=== PATIENT | female | born 1965 | race African-American/Black ===

== ENCOUNTER 2017-04-04 13:56 | Emergency (ER) | payer OTHER ==
[~2017-04-04] VITALS: Ht 175.3 cm; Wt 74.8 kg
[~2017-04-04 13:56] MED LIST: AUGMENTIN 875-1 EAC1 ORAL; CLINDAMYCIN HC150 MG ORAL; IBUPROFEN600 MG ORAL; KEFLEX500 MG ORAL; NORCO 5-325 TA1 EACH ORAL; TYLENOL EXTRA500 MG ORAL
[2017-04-04 14:21] VITALS: BP 118/75
--- NOTE | 2017-04-04 14:23 | Emergency Room Report ---
History of Present Illness General Chief Complaint: Female Urogenital Problems Source: Patient Present Illness HPI 51-year-old female presents to the emergency department complaining of 6/10 in severity dysuria, frequency, lower abdominal burning sensation with itching and labial swelling x3 days. Mild increase in odor. Patient denies hematuria denies vaginal discharge, genital skin lesions, swollen tender lymph nodes, joint pains, fevers or chills. Patient reports onset of symptoms was morning after having intercourse. Patient denies low back pain reports fatigue, nausea denies vomiting, constipation, diarrhea. Denies CP, Palpitations, LOC, AMS, dizziness, Changes in Vision, Sensation, paresthesias, or a sudden severe headache. Allergies: Coded Allergies: No Known Allergies (Unverified , 04/04/17) Patient History Past Medical History: see triage record Past Surgical History: none Pertinent Family History: none Last Menstrual Period: 02/24/2017 Immunizations: UTD Reviewed Nursing Documentation: PMH: Agreed, PSxH: Agreed Nursing Documentation-PMH Past Medical History: No Stated History Review of Systems All Other Systems: negative except mentioned in HPI Physical Exam Vital Signs Date Time Temp Pulse Resp B/P (MAP) Pulse Ox O2 Delivery O2 Flow Rate FiO2 04/04/17 14:01 97.3 80 14 118/75 99 Room Air Sp02 EP Interpretation: reviewed, normal General Appearance: no apparent distress, alert, GCS 15, non-toxic Head: normocephalic, atraumatic Eyes: bilateral eye normal inspection, bilateral eye PERRL ENT: hearing grossly normal, normal voice Neck: full range of motion Respiratory: lungs clear, normal breath sounds, speaking full sentences Cardiovascular #1: regular rate, rhythm Gastrointestinal: normal bowel sounds, non tender, soft, no guarding, no rebound Rectal: deferred Genitourinary: normal inspection, no CVA tenderness Musculoskeletal: back normal, gait/station normal, normal range of motion, non- tender Neurologic: alert, oriented x3, responsive, motor strength/tone normal, sensory intact, speech normal Psychiatric: judgement/insight normal, memory normal, mood/affect normal Skin: normal color, no rash, warm/dry, well hydrated Lymphatic: no adenopathy Medical Decision Making PA Attestation Dr. Coleman is my supervising Physician whom patient management has been discussed with. Diagnostic Impression: Primary Impression: Bacterial vaginosis ER Course 51-year-old female presents to the emergency department complaining of 6/10 in severity dysuria, frequency, lower abdominal burning sensation with itching and labial swelling x3 days. Mild increase in odor. Patient denies hematuria denies vaginal discharge, genital skin lesions, swollen tender lymph nodes, joint pains, fevers or chills. Patient reports onset of symptoms was morning after having intercourse. Patient denies low back pain reports fatigue, nausea denies vomiting, constipation, diarrhea. Denies CP, Palpitations, LOC, AMS, dizziness, Changes in Vision, Sensation, paresthesias, or a sudden severe headache. Ddx considered but are not limited to UTi , Pyelo, STI, Stone, Cystitis, BV, vaginitis Vital signs: are WNL, pt. is afebrile H&PE are most consistent with vaginitis, no evidence of pyelo, will r/o UTI with UA .other [place] will treat clinically ORDERS: - UA labs are attached : few bacteria, few squamous, no inflammatory cells consistent with contamination. ED INTERVENTIONS: -Pyridium PO DISCHARGE: At this time pt. is stable for d/c to home. Will provide printed patient care instructions, and any necessary prescriptions. Care plan and follow up instructions have been discussed with the patient prior to discharge. Labs Test 04/04/17 14:11 Urine Color Yellow Urine Appearance Clear Urine pH 6.5 (4.5-8.0) Urine Specific [place] 1.010 (1.005-1.035) Urine Protein Negative (NEGATIVE) Urine Glucose (UA) Negative (NEGATIVE) Urine Ketones 1+ (NEGATIVE) Urine Occult Blood Negative (NEGATIVE) Urine Nitrite Negative (NEGATIVE) Urine Bilirubin Negative (NEGATIVE) Urine Urobilinogen Normal MG/DL (0.0-1.0) Urine Leukocyte Esterase 1+ (NEGATIVE) Urine RBC 0-2 /HPF (0 - 2) Urine WBC 2-4 /HPF (0 - 2) Urine Squamous Epithelial Cells Few /LPF (NONE/OCC) Urine Bacteria Few /HPF (NONE) Last Vital Signs Date Time Temp Pulse Resp B/P (MAP) Pulse Ox O2 Delivery O2 Flow Rate FiO2 04/04/17 14:01 97.3 80 14 118/75 99 Room Air Disposition: HOME, SELF-CARE Condition: Stable Scripts Phenazopyridine Hcl* (PYRIDIUM*) 200 Mg Tablet 200 MG ORAL THREE TIMES A DAY for 3 Days, #9 TAB 0 Refills Prov: Delmy Jin 04/04/17 Fluconazole (FLUCONAZOLE) 100 Mg Tablet 100 MG ORAL DAILY, #3 TAB 0 Refills Prov: Delmy Jin. 04/04/17 Metronidazole* (FLAGYL*) 500 Mg Tablet 500 MG ORAL BID for 7 Days, #14 TAB 0 Refills Prov: Delmy Jin 04/04/17 Patient Instructions: Bacterial Vaginosis Additional Instructions: Take medications as directed. Follow up with a Primary Care Provider in 3-5 days, even if your symptoms have resolved. --Please review list of primary care clinics, if you do not already have a primary care provider Return sooner to ED if new symptoms occur, or current symptoms become worse. Pyridium will cause your urine to change color (Red/[place]), this is a normal side effect of the medication. - Please note that this Emergency Department Report was dictated using [employer] tax advisor technology software, occasionally this can lead to erroneous entry secondary to interpretation by the dictation equipment. Delmy Jin Apr 04, 2017 14:23
[2017-04-04 14:30] LABS: APPEARANCE,URINE CLEAR; KETONES,URINE 1+ (NEGATIVE); LEUKOCYTE ESTERASE ,URINE 1+ (NEGATIVE); NITRITE,URINE NEGATIVE (NEGATIVE); PH,URINE 6.5 (4.5-8.0); PROTEIN,URINE NEGATIVE (NEGATIVE); UROBILINOGEN,URINE NORMAL MG/DL (0.0-1.0)
[2017-04-04] MEDS ORDERED: Phenazopyridine 200mg tab ORAL ONE (14:30)
[2017-04-04 14:40] LABS: BACTERIA,URINE FEW /HPF; RBC,URINE 0-2 /HPF (0 - 2); SQUAMOUS EPITHELIAL CELL,UR FEW /LPF (NONE/OCC)
[2017-04-04] MEDS ORDERED: FLUCONAZOLE100 MG ORAL (15:04)
[2017-04-04] MEDS ORDERED: PHENAZOPYRIDIN200 MG ORAL (15:04)
[2017-04-04] MEDS ORDERED: METRONIDAZOLE500 MG ORAL (15:04)
[2017-04-04 15:34] VITALS: BP 118/75
== END 2017-04-04 15:36 | disposition home or self-care (01) ==
LOC: EDBD → EMR 14:35
DX: N76.0 Acute vaginitis (principal); B96.89 Other specified bacterial agents as the cause of diseases classified elsewhere
CPT/HCPCS: 81003; 99283

== ENCOUNTER 2017-04-14 14:59 | Emergency (ER) | payer OTHER ==
[~2017-04-14] VITALS: Ht 175.3 cm; Wt 65.8 kg
[~2017-04-14 14:59] MED LIST changes: +FLUCONAZOLE100 MG ORAL; +METRONIDAZOLE500 MG ORAL; +PHENAZOPYRIDIN200 MG ORAL
[2017-04-14 15:15] VITALS: BP 128/78
--- NOTE | 2017-04-14 15:38 | Emergency Room Report ---
History of Present Illness General Chief Complaint: Pelvic Pain Source: Patient Present Illness HPI 52 YO female presents to the ED c/O bladder distention, dysuria, and vaginal d/ c x 1 week. pt. was previously rx'd Flagyl but she states she is unable to tolerate flagyl and it made her sick. pt. finished course of Diflucan and has been intermittently taking Pyridium. Pt. reports fevers that come and go, denies chills, joint pain, nausea or vomiting. pt. states she is beginning to question the possibility of STD when previously she did not believe that could be the cause. denies abdominal tenderness, denies vaginal lesions, denies constipation or diarrhea. Denies CP, Palpitations, LOC, AMS, dizziness, Changes in Vision, Sensation, paresthesias, or a sudden severe headache. Allergies: Coded Allergies: No Known Allergies (Unverified , 04/04/17) Patient History Past Medical History: see triage record Past Surgical History: none Pertinent Family History: none Now: No Immunizations: UTD Reviewed Nursing Documentation: PMH: Agreed, PSxH: Agreed Nursing Documentation-PMH Past Medical History: No Stated History Review of Systems All Other Systems: negative except mentioned in HPI Physical Exam Vital Signs Date Time Temp Pulse Resp B/P (MAP) Pulse Ox O2 Delivery O2 Flow Rate FiO2 04/14/17 15:04 97.5 87 17 128/78 97 Room Air Sp02 EP Interpretation: reviewed, normal General Appearance: no apparent distress, alert, GCS 15, non-toxic Head: normocephalic, atraumatic Eyes: bilateral eye normal inspection, bilateral eye PERRL ENT: hearing grossly normal, normal voice Neck: full range of motion Respiratory: lungs clear, normal breath sounds, speaking full sentences Cardiovascular #1: regular rate, rhythm Gastrointestinal: normal bowel sounds, non tender, soft, no guarding, no rebound Rectal: deferred Genitourinary: normal inspection, no CVA tenderness, other - clear scant vaginal d/c noted, no MCT, no LAD Musculoskeletal: back normal, gait/station normal, normal range of motion, non- tender Neurologic: alert, oriented x3, responsive, motor strength/tone normal, sensory intact, normal gait, speech normal Skin: normal color, no rash, warm/dry, well hydrated Lymphatic: no adenopathy Medical Decision Making PA Attestation Dr. Kaplan is my supervising Physician whom patient management has been discussed with. Diagnostic Impression: Primary Impression: Urinary tract infection Qualified Codes: N30.00 - Acute cystitis without hematuria ER Course 52 YO female presents to the ED c/O bladder distention, dysuria, and vaginal d/ c x 1 week. pt. was previously rx'd Flagyl but she states she is unable to tolerate flagyl and it made her sick. pt. finished course of Diflucan and has been intermittently taking Pyridium. Pt. reports fevers that come and go, denies chills, joint pain, nausea or vomiting. pt. states she is beginning to question the possibility of STD when previously she did not believe that could be the cause. denies abdominal tenderness, denies vaginal lesions, denies constipation or diarrhea. Denies CP, Palpitations, LOC, AMS, dizziness, Changes in Vision, Sensation, paresthesias, or a sudden severe headache. Ddx considered but are not limited to UTi , Pyelo, STI, Stone, Cystitis, vaginitis. Vital signs: are WNL, pt. is afebrile H& PE are most consistent with: non-compliance with previous medication regimen and continued symptoms. ORDERS: - UA labs are attached - Nitrite positive -Urine HCG:Negative - Vaginal Wet mount: negative -Urine G & C: Pending ED INTERVENTIONS: -Rocephin IM DISCHARGE: At this time pt. is stable for d/c to home. Will provide printed patient care instructions, and any necessary prescriptions. Care plan and follow up instructions have been discussed with the patient prior to discharge. Labs Test 04/14/17 15:20 Urine Color Brown Urine Appearance Cloudy Urine pH 8 (4.5-8.0) Urine Specific [place] 1.010 (1.005-1.035) Urine Protein Negative (NEGATIVE) Urine Glucose (UA) Negative (NEGATIVE) Urine Ketones 1+ (NEGATIVE) Urine Occult Blood Negative (NEGATIVE) Urine Nitrite Positive (NEGATIVE) Urine Bilirubin Negative (NEGATIVE) Urine Urobilinogen 1 MG/DL (0.0-1.0) Urine Leukocyte Esterase 1+ (NEGATIVE) Urine RBC 0 /HPF (0 - 2) Urine WBC 0 /HPF (0 - 2) Urine Squamous Epithelial Cells Few /LPF (NONE/OCC) Urine Amorphous Sediment Many /LPF (NONE) Urine Bacteria Occasional /HPF (NONE) Urine HCG, Qualitative Negative Last Vital Signs Date Time Temp Pulse Resp B/P (MAP) Pulse Ox O2 Delivery O2 Flow Rate FiO2 04/14/17 15:04 97.5 87 17 128/78 97 Room Air Disposition: HOME, SELF-CARE Condition: Stable Scripts Cephalexin* (KEFLEX*) 500 Mg Capsule 500 MG ORAL EVERY 12 HOURS for 7 Days, #14 CAP 0 Refills Prov: Delmy Jin 04/14/17 Doxycycline Hyclate* (VIBRAMYCIN*) 100 Mg Capsule 100 MG ORAL EVERY 12 HOURS for 7 Days, #14 CAP 0 Refills Prov: Delmy Jin.Fran. 04/14/17 Patient Instructions: Urinary Tract Infection, [id number] Additional Instructions: Take medications as directed. Follow up with a Primary Care Provider for Urology referral in 3-5 days --Please review list of primary care clinics, if you do not already have a primary care provider Return sooner to ED if new symptoms occur, or current symptoms become worse. - Please note that this Emergency Department Report was dictated using [employer] or presser technology software, occasionally this can lead to erroneous entry secondary to interpretation by the dictation equipment. Delmy Jin Apr 14, 2017 15:38
[2017-04-14 15:56] LABS: APPEARANCE,URINE CLOUDY; KETONES,URINE 1+ (NEGATIVE); LEUKOCYTE ESTERASE ,URINE 1+ (NEGATIVE); NITRITE,URINE POSITIVE (NEGATIVE); PH,URINE 8 (4.5-8.0); PROTEIN,URINE NEGATIVE (NEGATIVE); UROBILINOGEN,URINE 1 MG/DL (0.0-1.0)
[2017-04-14 16:02] LABS: AMORPHOUS SEDIMENT,UR MANY /LPF; BACTERIA,URINE OCCASIONAL /HPF; RBC,URINE 0 /HPF (0 - 2); SQUAMOUS EPITHELIAL CELL,UR FEW /LPF (NONE/OCC); WBC,URINE 0 /HPF (0 - 2)
[2017-04-14] MEDS ORDERED: VIBRAMYCIN100 MG ORAL (16:56)
[2017-04-14] MEDS ORDERED: NITROFURANTOIN100 M2 ORAL (16:56)
[2017-04-14 17:01] VITALS: BP 128/75
[2017-04-14 17:04] VITALS: BP 128/75
[2017-04-14] MEDS ORDERED: CEPHALEXIN500 MG ORAL (17:04)
== END 2017-04-14 17:05 | disposition home or self-care (01) ==
LOC: EDBD 14:59 → EMR 15:40
DX: N30.00 Acute cystitis without hematuria (principal)
CPT/HCPCS: 81003; 81025; 87210; 87491; 87590; 96372; 99283; J0696

== ENCOUNTER 2017-11-12 18:07 | Emergency (ER) | payer OTHER ==
[~2017-11-12] VITALS: Ht 175.3 cm; Wt 68.0 kg
[~2017-11-12 18:07] MED LIST changes: +CEPHALEXIN500 MG ORAL; +NITROFURANTOIN100 M2 ORAL; +VIBRAMYCIN100 MG ORAL
[2017-11-12] MEDS ORDERED: NKM (18:29)
--- NOTE | 2017-11-12 18:38 | Emergency Room Report ---
History of Present Illness General Chief Complaint: Female Urogenital Problems Source: Patient Present Illness HPI 53-year-old female patient presents ER complaining of dysuria for the past 2 days. Patient denies hematuria. Patient also complains of vaginal discharge, reports clear/green color. Patient reports her boyfriend recently tested positive for chlamydia and would like to be treated as well. Patient denies fever, vomiting, abdominal pain. Patient denies foul-smelling odor. Patient denies vaginal rash. Patient denies other symptoms at this time. reports LMP a few days ago, normal for her. denies . Allergies: Coded Allergies: No Known Allergies (Unverified , 04/04/17) Patient History Past Medical History: see triage record Last Menstrual Period: 11/09/17 Reviewed Nursing Documentation: PMH: Agreed; PSxH: Agreed Nursing Documentation-PMH Past Medical History: No Stated History Review of Systems All Other Systems: negative except mentioned in HPI Physical Exam Vital Signs Date Time Temp Pulse Resp B/P (MAP) Pulse Ox O2 Delivery O2 Flow Rate FiO2 11/12/17 18:26 98.0 86 17 122/76 98 Room Air 98.1 Sp02 EP Interpretation: reviewed, normal General Appearance: well appearing, no apparent distress, alert, GCS 15, non- toxic Head: normocephalic, atraumatic Eyes: bilateral eye normal inspection, bilateral eye PERRL ENT: hearing grossly normal, normal pharynx, no angioedema, normal voice, uvula midline, moist mucus membranes Neck: full range of motion Respiratory: lungs clear, normal breath sounds, no rhonchi, no respiratory distress, no accessory muscle use, no wheezing, speaking full sentences Cardiovascular #1: regular rate, rhythm, no edema Gastrointestinal: soft, no mass, non-distended, no guarding, no rebound, tenderness - suprapubic Genitourinary: no CVA tenderness Neurologic: alert, oriented x3, responsive, motor strength/tone normal, sensory intact Psychiatric: mood/affect normal Skin: no rash Medical Decision Making PA Attestation Dr. Kaplan is my supervising Physician whom patient management has been discussed with. Diagnostic Impression: Primary Impression: Concern about sexually transmitted disease in female without diagnosis ER Course Pt presents to ED c/o urinary symptoms. DDX considered but are not limited to cystitis, pyelonephritis, STI, vaginitis. No white discharge, no foul smelling odor, low suspicion for bacterial vaginosis or yeast infection, follow with PCP to discuss further treatment referral. VITAL SIGNS are WNL, patient is afebrile. Ordered UA. ER COURSE UA results show 1+ leukocyte esterase, no nitrites, 0-2 WBCs, no bacteria, UTI unlikely, does not require treatment with abx. discussed UA results with patient, does not require antibiotic treatment at home for UTI, symptoms likely related to possible STI infection. Will treat patient for for STI, patient instructed to follow with PCP and or at STI clinic for further testing and treatment as needed. treated patient with azithromycin and Rocephin in ER. Patient advised all sexual partners need treatment and testing too. Wear condoms during sex. Patient is resting comfortably in chair, nontoxic appearing, in no acute distress. Patient states they feel better and is ready to go home. DISCHARGE -Rx provided for Pyridium for pain, side effect may cause her urine to turn orange. Patient is stable for discharge. Patient resting comfortably, in no acute distress, nontoxic appearing, talking without difficulty. Will provide with patient care instructions and any necessary prescriptions. Patient understands and agrees to treatment plan. Patient encouraged to drink plenty of fluids. Patient to take medication as instructed. Care plan and follow-up instructions provided. Patient questions asked and answered. Reports understanding and agreement to treatment plan. Patient instructed to follow-up with primary care provider in 3 - 5 days. ER precautions given. Patient instructed to return to ER immediately for any new or worsening of symptoms. Including but not limited to fever, abdominal pain , intractable vomiting. - Please note that this Emergency Department Report was dictated using [employer] pile driver operator technology software, occasionally this can lead to erroneous entry secondary to interpretation by the dictation equipment. Labs Test 11/12/17 18:30 Urine Color Yellow Urine Appearance Clear Urine pH 7 (4.5-8.0) Urine Specific [place] 1.015 (1.005-1.035) Urine Protein Negative (NEGATIVE) Urine Glucose (UA) Negative (NEGATIVE) Urine Ketones Negative (NEGATIVE) Urine Occult Blood Negative (NEGATIVE) Urine Nitrite Negative (NEGATIVE) Urine Bilirubin Negative (NEGATIVE) Urine Urobilinogen Normal MG/DL (0.0-1.0) Urine Leukocyte Esterase 1+ (NEGATIVE) Urine RBC 0-2 /HPF (0 - 2) Urine WBC 0-2 /HPF (0 - 2) Urine Squamous Epithelial Cells Occasional /LPF Urine Bacteria None /HPF (NONE) Last Vital Signs Date Time Temp Pulse Resp B/P (MAP) Pulse Ox O2 Delivery O2 Flow Rate FiO2 11/12/17 18:26 98.0 86 17 122/76 98 Room Air 98.1 Disposition: HOME, SELF-CARE Condition: Stable Scripts Phenazopyridine Hcl* (PYRIDIUM*) 100 Mg Tablet 100 MG ORAL THREE TIMES A DAY for 3 Days, #9 TAB Prov: Kade Ott 11/12/17 Patient Instructions: Sexually Transmitted Disease, [id number], Urinary Tract Infection, [id number] Additional Instructions: Followup with primary care provider and followup with and./or OBGYN. Drink plenty of fluids. Take medications as directed. Pyridium has SE of turning urine orange. Patient questions asked and answered. ER precautions given, patient instructed to return to ER immediately for any new or worsening of symptoms. Kade Ott November 12, 2017 18:38
[2017-11-12] MEDS ORDERED: Acetaminophen 500mg (ES) tab ORAL ONE (18:45)
[2017-11-12 18:46] LABS: APPEARANCE,URINE CLEAR; BILIRUBIN, URINE NEGATIVE (NEGATIVE); GLUCOSE, URINE (UA) NEGATIVE (NEGATIVE); KETONES,URINE NEGATIVE (NEGATIVE); LEUKOCYTE ESTERASE ,URINE 1+ (NEGATIVE); NITRITE,URINE NEGATIVE (NEGATIVE); PH,URINE 7 (4.5-8.0); PROTEIN,URINE NEGATIVE (NEGATIVE); UROBILINOGEN,URINE NORMAL MG/DL (0.0-1.0)
[2017-11-12 18:47] LABS: COLOR,URINE YELLOW
[2017-11-12] MEDS ORDERED: Azithromycin 250mg tab ORAL ONE (19:00)
[2017-11-12] MEDS ORDERED: PHENAZOPYRIDIN100 MG ORAL (19:00)
[2017-11-12] MEDS ORDERED: Lidocaine 1% MPF 10mg/ml 5ml INJ ONE (19:00)
[2017-11-12 19:03] VITALS: BP 122/76
[2017-11-12 19:05] VITALS: BP 122/76
== END 2017-11-12 19:07 | disposition home or self-care (01) ==
LOC: EMR 18:58
DX: R30.0 Dysuria (principal); N89.8 Other specified noninflammatory disorders of vagina
CPT/HCPCS: 81003; 96372; 99283; J0696; Q0144

== ENCOUNTER 2018-06-18 16:18 | Emergency (ER) | payer OTHER ==
[~2018-06-18] VITALS: Ht 175.3 cm; Wt 65.8 kg
[~2018-06-18 16:18] MED LIST changes: +NKM; +PHENAZOPYRIDIN100 MG ORAL
[2018-06-18 16:33] VITALS: BP 117/80
[2018-06-18] MEDS ORDERED: ROBITUSSIN NIG237 ML PO (17:09)
[2018-06-18] MEDS ORDERED: CEPHALEXIN500 MG ORAL (17:09)
[2018-06-18 17:34] VITALS: BP 121/83
--- NOTE | 2018-06-18 19:03 | Emergency Room Report ---
History of Present Illness General Chief Complaint: Flu Like Symptoms Source: Patient Present Illness HPI Patient presents with complaints of sore throat cough congestion Ongoing for the past 4 days denies any chest pain Denies any back or flank pain Denies any vomiting or diarrhea She has become more productive with her cough as well Denies any neck pain or photophobia denies any recent travel Sore throat is 5 out of 10 worse with swallowing Allergies: Coded Allergies: No Known Allergies (Unverified , 04/04/17) Patient History Past Medical History: see triage record Pertinent Family History: none Reviewed Nursing Documentation: PMH: Agreed; PSxH: Agreed Nursing Documentation-PMH Hx COPD: No - PNA Review of Systems All Other Systems: negative except mentioned in HPI Physical Exam Vital Signs Date Time Temp Pulse Resp B/P (MAP) Pulse Ox O2 Delivery O2 Flow Rate FiO2 06/18/18 16:33 97.9 17 117/80 97 Room Air 06/18/18 16:33 81 Sp02 EP Interpretation: reviewed, normal General Appearance: well appearing, no apparent distress Head: normocephalic, atraumatic Eyes: bilateral eye PERRL, bilateral eye EOMI ENT: hearing grossly normal, TMs + canals normal, uvula midline, pharyngeal erythema Neck: full range of motion, supple, no meningismus, no bony tend Respiratory: lungs clear, normal breath sounds, no rhonchi, no respiratory distress, no retraction, no accessory muscle use Cardiovascular #1: normal peripheral pulses, regular rate, rhythm, no edema, no gallop, no JVD, no murmur Gastrointestinal: normal bowel sounds, non tender, soft, no mass, no organomegaly, non-distended, no guarding, no hernia, no pulsatile mass, no rebound Genitourinary: no CVA tenderness Musculoskeletal: normal inspection Neurologic: oriented x3, responsive, modeling teacher III-XII nml as tested, motor strength/ tone normal, sensory intact Psychiatric: mood/affect normal Skin: normal color, no rash, warm/dry, palpation normal Lymphatic: normal inspection, no adenopathy Medical Decision Making Diagnostic Impression: Primary Impression: pharyngitis ER Course Patient's exam is consistent with pharyngitis given the erythema and duration patient is treated with antibiotics Does not appear septic or toxic and will have initial conservative outpatient trial Last Vital Signs Date Time Temp Pulse Resp B/P (MAP) Pulse Ox O2 Delivery O2 Flow Rate FiO2 12/26/18 17:34 98.2 77 20 121/83 100 Room Air Status: improved Disposition: HOME, SELF-CARE Condition: Stable Scripts Dextromethorphan Hb/Doxylamine (ROBITUSSIN NIGHTTIME COUGH DM) 237 Ml Liquid 10 ML PO QHS for 5 Days, ML Prov: Shantell Kaplan DO 06/18/18 Cephalexin* (KEFLEX*) 500 Mg Capsule 500 MG ORAL EVERY 8 HOURS for 7 Days, CAP Prov: Shantell Kaplan DO 06/18/18 Referrals: [facility],REFERRING (PCP) Patient Instructions: Pharyngitis, [id number] Additional Instructions: Patient is provided with the discharge instructions notified to follow up with primary doctor in the next 2-3 days otherwise return to the er with any worsening symptoms. Please note that this report is being documented using [employer] technology. This can lead to erroneous entry secondary to incorrect interpretation by the dictating instrument. Shantell Kaplan DO Jun 18, 2018 19:03
== END 2018-06-18 17:44 | disposition home or self-care (01) ==
LOC: EMR 17:38
DX: J02.9 Acute pharyngitis, unspecified (principal); J44.9 Chronic obstructive pulmonary disease, unspecified
CPT/HCPCS: 99283

== ENCOUNTER 2018-10-08 14:37 | Emergency (ER) | payer OTHER ==
[~2018-10-08] VITALS: Ht 175.3 cm; Wt 65.8 kg
[~2018-10-08 14:37] MED LIST changes: +ROBITUSSIN NIG237 ML PO
--- NOTE | 2018-10-08 15:10 | NUR ---
ED Nurse Note: Pt came into the ER w/ complaints of pelvic pain x3-4 days. Pt is rating the pain a 7/10 in the area. Non radiating. Pt denies trauma. Pt is A + O x4. Ambulatory. Skin warm to touch
[2018-10-08 15:11] VITALS: BP 100/65
[2018-10-08 15:34] LABS: APPEARANCE,URINE CLEAR; BILIRUBIN, URINE NEGATIVE (NEGATIVE); GLUCOSE, URINE (UA) NEGATIVE (NEGATIVE); KETONES,URINE NEGATIVE (NEGATIVE); LEUKOCYTE ESTERASE ,URINE 1+ (NEGATIVE); NITRITE,URINE NEGATIVE (NEGATIVE); PH,URINE 6.5 (4.5-8.0); PROTEIN,URINE NEGATIVE (NEGATIVE); UROBILINOGEN,URINE NORMAL MG/DL (0.0-1.0)
[2018-10-08 15:41] LABS: COLOR,URINE YELLOW
--- NOTE | 2018-10-08 16:14 | Emergency Room Report ---
History of Present Illness General Chief Complaint: Pelvic Pain Source: Patient Present Illness HPI 54-year-old female presents to the emergency department complaining of 6 out of dysuria, urinary frequency and pelvic pain 4 days. Patient reports recent unprotected intercourse she states that she has noted some increased vaginal discharge she denies appreciable odor or color. She reports moderate itching she denies recent antibiotic use. denies fevers, chills, joint pains, swollen tender lymph nodes, abdominal tenderness/pain. Pt requesting STI tx. Allergies: Coded Allergies: No Known Allergies (Unverified , 04/04/17) Patient History Past Medical History: see triage record Past Surgical History: none Pertinent Family History: none Last Menstrual Period: 09/22/18 Now: No Reviewed Nursing Documentation: PMH: Agreed; PSxH: Agreed Nursing Documentation-PMH Past Medical History: No Stated History Hx COPD: No - PNA Review of Systems All Other Systems: negative except mentioned in HPI Physical Exam Vital Signs Date Time Temp Pulse Resp B/P (MAP) Pulse Ox O2 Delivery O2 Flow Rate FiO2 10/08/18 14:44 98.4 73 18 108/66 96 Room Air Sp02 EP Interpretation: reviewed, normal General Appearance: no apparent distress, alert, GCS 15, non-toxic Head: normocephalic, atraumatic Eyes: bilateral eye normal inspection, bilateral eye PERRL ENT: hearing grossly normal, normal voice Neck: full range of motion Respiratory: lungs clear, normal breath sounds, speaking full sentences Cardiovascular #1: regular rate, rhythm Gastrointestinal: normal bowel sounds, non tender, soft Rectal: deferred Genitourinary: normal inspection, no CVA tenderness, adnexa normal, cervix normal, ext genitalia/vag normal, os closed, other - no CMT, white d/c noted in the vaginal vault. Musculoskeletal: back normal, gait/station normal, normal range of motion, non- tender Neurologic: alert, oriented x3, responsive, motor strength/tone normal, sensory intact, speech normal, grossly normal Psychiatric: judgement/insight normal Skin: normal color, no rash, warm/dry, well hydrated Lymphatic: no adenopathy Medical Decision Making PA Attestation Dr. Kaplan is my supervising Physician whom patient management has been discussed with. Diagnostic Impression: Primary Impression: Vaginitis Qualified Codes: N76.0 - Acute vaginitis ER Course 54-year-old female presents to the emergency department complaining of 6 out of dysuria, urinary frequency and pelvic pain 4 days. Patient reports recent unprotected intercourse she states that she has noted some increased vaginal discharge she denies appreciable odor or color. She reports moderate itching she denies recent antibiotic use. denies fevers, chills, joint pains, swollen tender lymph nodes, abdominal tenderness/pain. Pt requesting STI tx. . Ddx considered but are not limited to UTi , Pyelo, STI, Stone, Cystitis, vaginal laceration, vaginitis. Vital signs: are WNL, pt. is afebrile H& PE are most consistent with: Vaginitis ORDERS: - UA labs are attached - [place] : Few clue ED INTERVENTIONS: - Rocephin 250mg IM -1g Azithromycin PO -I do not identify an emergent condition at this time. With current presentation , pt. is stable for close outpatient follow up and conservative treatment. D/ w pt. to return promptly to ED with worsening or new symptoms.- Pt. verbalizes' understanding and agreement with proposed treatment plan.proposed treatment plan. DISCHARGE: At this time pt. is stable for d/c to home. Will provide printed patient care instructions, and any necessary prescriptions. Care plan and follow up instructions have been discussed with the patient prior to discharge. discussed with the patient prior to discharge. Labs Test 10/08/18 15:22 Urine Color Yellow Urine Appearance Clear Urine pH 6.5 (4.5-8.0) Urine Specific [place] 1.020 (1.005-1.035) Urine Protein Negative (NEGATIVE) Urine Glucose (UA) Negative (NEGATIVE) Urine Ketones Negative (NEGATIVE) Urine Blood Negative (NEGATIVE) Urine Nitrite Negative (NEGATIVE) Urine Bilirubin Negative (NEGATIVE) Urine Urobilinogen Normal MG/DL (0.0-1.0) Urine Leukocyte Esterase 1+ (NEGATIVE) Urine RBC 0-2 /HPF (0 - 2) Urine WBC 2-4 /HPF (0 - 2) Urine Squamous Epithelial Cells Few /LPF (NONE/OCC) Urine Amorphous Sediment Few /LPF (NONE) Urine Bacteria Few /HPF (NONE) Last Vital Signs Date Time Temp Pulse Resp B/P (MAP) Pulse Ox O2 Delivery O2 Flow Rate FiO2 10/08/18 15:11 98.3 78 20 100/65 98 Room Air Disposition: HOME, SELF-CARE Condition: Stable Scripts Metronidazole* (FLAGYL*) 500 Mg Tablet 500 MG ORAL BID for 7 Days, #14 TAB Prov: Delmy Jin 10/08/18 Patient Instructions: Bacterial Vaginosis, [id number], Pelvic Pain, Female Additional Instructions: Take medications as directed. Follow up with a [facility] within 3-5 days, even if your symptoms have resolved. Return sooner to ED if new symptoms occur, or current symptoms become worse. - Please note that this Emergency Department Report was dictated using Easy Vinooutsole beveler technology software, occasionally this can lead to erroneous entry secondary to interpretation by the dictation equipment. Delmy Jin Oct 08, 2018 16:14
[2018-10-08] MEDS ORDERED: METRONIDAZOLE500 MG ORAL (16:15)
[2018-10-08] MEDS ORDERED: Lidocaine 1% MPF 10mg/ml 5ml INJ ONE (16:15)
[2018-10-08] MEDS ORDERED: Azithromycin 250mg tab ORAL ONE (16:15)
[2018-10-08 16:31] VITALS: BP 105/66
--- NOTE | 2018-10-08 16:31 | NUR ---
ER DISCHARGE NOTE: Patient is cleared to be discharged per ERMD, pt is aox4, on room air, with stable vital signs. pt was given dc and prescription instructions, pt was able to verbalize understanding, pt id band removed without complications. pt is able to ambulate with steady gait. pt took all belongings.
== END 2018-10-08 16:32 | disposition home or self-care (01) ==
LOC: EMR 15:35
DX: N76.0 Acute vaginitis (principal)
CPT/HCPCS: 81003; 87210; 96372; 96374; 99284; J0696; Q0144

== ENCOUNTER 2019-01-09 14:30 | Emergency (ER) | payer OTHER ==
[~2019-01-09] VITALS: Ht 175.3 cm; Wt 65.8 kg
[2019-01-09 14:38] VITALS: BP 131/76
[2019-01-09] MEDS ORDERED: AMOXICILLIN500 MG ORAL (15:06)
[2019-01-09] MEDS ORDERED: IBUPROFEN600 MG ORAL (15:06)
[2019-01-09 15:12] VITALS: BP 131/76
--- NOTE | 2019-01-09 19:42 | Emergency Room Report ---
History of Present Illness General Chief Complaint: Toothache Source: Patient Present Illness HPI Patient presents with complaints of left lower dental pain reports that she was told by her dentist to present to the emergency room She is out of town and will not be back for the next 7 days Patient reports increased pain to the left lower dental area denies any trauma denies any fevers denies any obvious swelling in the lower jaw area Denies any pain with swallowing Allergies: Coded Allergies: No Known Allergies (Unverified , 04/04/17) Patient History Past Medical History: see triage record Last Menstrual Period: 12/2018 Now: No Reviewed Nursing Documentation: PMH: Agreed; PSxH: Agreed Nursing Documentation-PMH Past Medical History: No History, Except For Hx COPD: No - PNA Review of Systems All Other Systems: negative except mentioned in HPI Physical Exam Vital Signs Date Time Temp Pulse Resp B/P (MAP) Pulse Ox O2 Delivery O2 Flow Rate FiO2 01/09/19 14:36 97.7 65 14 131/76 (94) 98 Room Air Sp02 EP Interpretation: reviewed, normal General Appearance: well appearing, no apparent distress Head: normocephalic, atraumatic Eyes: bilateral eye PERRL, bilateral eye EOMI ENT: other - Left back molar reveals increased decay and pain on palpation of the dental area no obvious gingival erythema or swelling no obvious facial abscess, Neck: supple Respiratory: lungs clear, no respiratory distress, no retraction Cardiovascular #1: regular rate, rhythm Gastrointestinal: non tender, soft Musculoskeletal: normal inspection Neurologic: alert, oriented x3, responsive Skin: no rash Lymphatic: no adenopathy Medical Decision Making Diagnostic Impression: Primary Impression: dental infection Last Vital Signs Date Time Temp Pulse Resp B/P (MAP) Pulse Ox O2 Delivery O2 Flow Rate FiO2 01/09/19 15:12 97.7 65 14 131/76 98 Room Air Disposition: HOME, SELF-CARE Condition: Stable Scripts Ibuprofen* (MOTRIN*) 600 Mg Tablet 600 MG ORAL Q8H PRN for For Pain, #20 TAB 0 Refills Prov: Shantell Kaplan DO 01/09/19 Amoxicillin* (AMOXIL*) 500 Mg Capsule 500 MG ORAL THREE TIMES A DAY, #30 CAP Prov: Shantell Kaplan DO 01/09/19 Referrals: Richard Mejia MD (PCP) [facility] INFO: New Patient Screening: Mon-Thurs 8am-1pm Mon- Thurs 9am -5pm and Fri 2pm-5pm Patient Instructions: Dental Pain, Dental Caries, [id number] Additional Instructions: Patient is provided with the discharge instructions notified to follow up with primary doctor in the next 2-3 days otherwise return to the er with any worsening symptoms. Please note that this report is being documented using DRAGON technology. This can lead to erroneous entry secondary to incorrect interpretation by the dictating instrument. Shantell Kaplan DO Jan 09, 2019 19:42
== END 2019-01-09 15:11 | disposition home or self-care (01) ==
LOC: EMR 15:05
DX: K08.89 Other specified disorders of teeth and supporting structures (principal)
CPT/HCPCS: 99282

== ENCOUNTER 2019-05-01 16:35 | Emergency (ER) | payer OTHER ==
[~2019-05-01] VITALS: Ht 175.3 cm; Wt 65.8 kg
[~2019-05-01 16:35] MED LIST changes: +AMOXICILLIN500 MG ORAL
[2019-05-01 16:40] VITALS: BP 134/83
--- NOTE | 2019-05-01 16:40 | NUR ---
ED Nurse Note: Patient presented to ER brought in by self from home c/o toothache. Patient verbalized pain level at 8/10. Patient aao x 4 and ambulatory. No acute distress noted during assessment.
[2019-05-01] MEDS ORDERED: AMOXICILLIN500 MG ORAL (16:52)
--- NOTE | 2019-05-01 16:56 | NUR ---
ER DISCHARGE NOTE: Patient is cleared to be discharged per ER PEGGY Mondragon, pt is aox4, on room air, with stable vital signs. pt was given dc and prescription instructions, pt was able to verbalize understanding, pt id band removed. pt is able to ambulate with steady gait. pt took all belongings. pt stable upon discharge.
[2019-05-01 16:59] VITALS: BP 130/78
--- NOTE | 2019-05-01 18:19 | Emergency Room Report ---
History of Present Illness General Chief Complaint: Toothache Source: Patient Present Illness HPI 55-year-old female brought in by self complaining of right lower toothache x 3 days. States had tactile fever last night. Denies headache, URI symptoms, vomiting, diarrhea, abdominal pain. Took Aleve with some help. Patient states dentist is out of town for 2 weeks. Allergies: Coded Allergies: No Known Allergies (Unverified , 04/04/17) Patient History Past Medical History: none Past Surgical History: none Nursing Documentation-PMH Past Medical History: No History, Except For Hx COPD: No - PNA Review of Systems All Other Systems: negative except mentioned in HPI Physical Exam Vital Signs Date Time Temp Pulse Resp B/P (MAP) Pulse Ox O2 Delivery O2 Flow Rate FiO2 05/01/19 16:39 97.5 79 17 134/83 (100) 99 Room Air Sp02 EP Interpretation: reviewed, normal General Appearance: no apparent distress, alert, GCS 15, non-toxic ENT: hearing grossly normal, normal pharynx, no angioedema, normal voice, other - right lower tooth: cavity, with black discoloration along gum line. Respiratory: chest non-tender, lungs clear, normal breath sounds, speaking full sentences Cardiovascular #1: regular rate, rhythm, no edema Skin: no rash, warm/dry Medical Decision Making PA Attestation This patient was seen under the direct supervision of Dr. Major, who directed all aspects of care and diagnostic interpretation. Diagnostic Impression: Primary Impression: Toothache ER Course ED course HPI: 55-year-old female brought in by self complaining of right lower toothache x 3 days. States had tactile fever last night. Denies headache, URI symptoms, vomiting, diarrhea, abdominal pain. Took Aleve with some help. Patient states dentist is out of town for 2 weeks. Ddx: periodontal disease, dental abscess HPI & PE consistent with: toothache Orders/ Interventions: None Disposition: Rx for amoxicillin 500mg TID x 10 days given. May continue with otc Aleve. Soft , liquid diet. Followup with dentist EDI, dental referrals given. At this time pt. is stable for d/c to home. Will provide printed patient care instructions, and any necessary prescriptions. Care plan and follow up instructions have been discussed with the patient prior to discharge. Please note that this Emergency Department Report was dictated using StockRadarconcrete paving supervisor technology software, occasionally this can lead to erroneous entry secondary to interpretation by the dictation equipment. Last Vital Signs Date Time Temp Pulse Resp B/P (MAP) Pulse Ox O2 Delivery O2 Flow Rate FiO2 05/01/19 16:59 98.0 86 17 130/78 100 Room Air Disposition: HOME, SELF-CARE Condition: Stable Scripts Amoxicillin* (AMOXIL*) 500 Mg Capsule 500 MG ORAL EVERY 8 HOURS for 10 Days, #30 CAP Prov: Giancarlo Sheldon 05/01/19 Referrals: Richard Mejia MD (PCP) [facility] INFO: New Patient Screening: Sat- 8am-1pm Sat- 9am -5pm and Sat 2pm-5pm [facility] - [facility] Location: 2nd Floor Room [address] [place] [address] INFO: Sat & Sat-8:30am-4:30pm, - 8:30am - 7pm, - Emergency only, Sat- 8:30am-11:30am and afternoon emergency only [facility] Pediatrics(age 2-12) - Orthodontic Clinic - Hours: Sat,Sat,, 8:15am and 1pm (new patient screening), Tu. 1pm. Emergency clinic Saturday - Saturday 8:30am and 1pm, Tues. 1pm. *Call to check if clinic is open; No appointment necessary for the first visit ( new patient screening), Arrive 15-30 minutes early as it is first come, first serve. Patient Instructions: Dental Pain Additional Instructions: Follow-up with dentist as soon as possible return to ER if worsening symptoms, new symptoms, or sudden change in condition. Giancarlo Sheldon May 01, 2019 18:19
== END 2019-05-01 16:46 | disposition home or self-care (01) ==
LOC: EMR 16:45
DX: K08.89 Other specified disorders of teeth and supporting structures (principal)
CPT/HCPCS: 99282

== ENCOUNTER 2019-08-15 14:49 | Emergency (ER) | payer OTHER ==
[~2019-08-15] VITALS: Ht 175.3 cm; Wt 65.8 kg
[2019-08-15 15:01] VITALS: BP 118/80
--- NOTE | 2019-08-15 15:09 | Emergency Room Report ---
History of Present Illness General Chief Complaint: Toothache Source: Medical Record Present Illness HPI 55-year-old female who is wearing a crown reports that it has become loose x2 days and her dentist told her to come to the emergency room for antibiotics. Patient reports that Keflex is the only thing that works for her. Has an upcoming appointment with dentist. Is in no distress, denies facial swelling, fever and chills. The crown has been loose. No pus drainage noted. Denies all other associated symptoms. Allergies: Coded Allergies: PENICILLINS (Verified Allergy, Unknown, 08/15/19) Patient History Past Medical History: see triage record Past Surgical History: none Pertinent Family History: none Last Menstrual Period: 06/24/19 Now: No Immunizations: UTD Reviewed Nursing Documentation: PMH: Agreed; PSxH: Agreed Nursing Documentation-PMH Past Medical History: No History, Except For Hx COPD: No - PNA Review of Systems All Other Systems: negative except mentioned in HPI Physical Exam Vital Signs Date Time Temp Pulse Resp B/P (MAP) Pulse Ox O2 Delivery O2 Flow Rate FiO2 08/15/19 15:01 97.9 73 18 118/80 (93) 97 Room Air Sp02 EP Interpretation: reviewed, normal General Appearance: no apparent distress, alert, GCS 15, non-toxic Head: normocephalic, atraumatic Eyes: bilateral eye normal inspection, bilateral eye PERRL ENT: hearing grossly normal, normal pharynx, no angioedema, normal voice, other - Loose crown left lower molar Neck: full range of motion, supple/symm/no masses Respiratory: chest non-tender, lungs clear, no rhonchi Cardiovascular #1: regular rate, rhythm, no edema, no murmur Gastrointestinal: normal bowel sounds, non tender, soft, non-distended, no guarding, no rebound Rectal: deferred Genitourinary: no CVA tenderness Musculoskeletal: back normal Neurologic: alert, motor strength/tone normal, oriented x3, sensory intact, responsive, speech normal Psychiatric: judgement/insight normal, memory normal, mood/affect normal, no suicidal/homicidal ideation Skin: no rash Lymphatic: no adenopathy Medical Decision Making PA Attestation All diagnoses and treatment plans were reviewed and discussed with my supervising physician Dr. Pires Diagnostic Impression: Primary Impression: Dental infection ER Course 55-year-old female who is wearing a crown reports that it has become loose x2 days and her dentist told her to come to the emergency room for antibiotics. Patient reports that Keflex is the only thing that works for her. Has an upcoming appointment with dentist. Is in no distress, denies facial swelling, fever and chills. The crown has been loose. No pus drainage noted. Denies all other associated symptoms. Ddx considered but are not limited to : Cellulitis, dental abscess, dental infection, Vital signs: are WNL, pt. is afebrile H&PE are most consistent with: Dental infection ORDERS: Keflex, Motrin ED INTERVENTIONS: None required at this time. DISCHARGE: At this time pt. is stable for d/c to home. Will provide printed patient care instructions, and any necessary prescriptions. Care plan and follow up instructions have been discussed with the patient prior to discharge. Patient take medication as directed, follow with primary care provider as well as dentist. If worsening symptoms return to the emergency room. At this time no imaging of the facial bone needed as no abscess formation suspected and patient sitting comfortably without any swelling of the face. Last Vital Signs Date Time Temp Pulse Resp B/P (MAP) Pulse Ox O2 Delivery O2 Flow Rate FiO2 08/15/19 15:01 97.9 73 18 118/80 (93) 97 Room Air Disposition: HOME, SELF-CARE Condition: Stable Scripts Ibuprofen* (MOTRIN*) 600 Mg Tablet 600 MG ORAL Q6H PRN for For Pain, #30 TAB Prov: Ubaldo Holt 08/15/19 Cephalexin* (KEFLEX*) 500 Mg Capsule 500 MG ORAL EVERY 6 HOURS for 7 Days, #28 CAP Prov: Ubaldo Holt 08/15/19 Patient Instructions: Dental Abscess, [id number] Additional Instructions: Take medication as directed, follow-up with your primary care provider or your dentist, if worsening symptoms return to the emergency room Ubaldo Holt Aug 15, 2019 15:09
[2019-08-15] MEDS ORDERED: CEPHALEXIN500 MG ORAL (15:10)
[2019-08-15] MEDS ORDERED: IBUPROFEN600 MG ORAL (15:10)
[2019-08-15 15:15] VITALS: BP 118/80
== END 2019-08-15 15:15 | disposition home or self-care (01) ==
LOC: EMR 15:08
DX: K04.7 Periapical abscess without sinus (principal); Z88.0 Allergy status to penicillin
CPT/HCPCS: 99282

== ENCOUNTER 2019-09-24 14:01 | Emergency (ER) | payer OTHER ==
[~2019-09-24] VITALS: Ht 175.3 cm; Wt 65.8 kg
--- NOTE | 2019-09-24 14:10 | NUR ---
ED Nurse Note: PT walked into ED for C/O toothache to righer upper molar area x 3 days.
[2019-09-24 14:11] VITALS: BP 132/86
--- NOTE | 2019-09-24 14:34 | Emergency Room Report ---
History of Present Illness General Chief Complaint: Toothache Source: Patient Present Illness HPI 55-year-old female presents to the emergency department complaining of 8 out of 10 severity pain localized to the right posterior upper molar progressive x3 days. Patient reports she had previous root canal done in that tooth and she is now experiencing symptoms. Patient denies fevers or chills. She denies swollen tender lymph nodes. She denies recent trauma to the tooth. Patient states she has been taking Tylenol with no relief of her symptoms. Patient states that she has an allergy to penicillins and her dentist typically gives her Keflex as that medication works the best when she has dental infections. She denies any other aggravating or relieving factors at this time Allergies: Coded Allergies: PENICILLINS (Verified Allergy, Unknown, 08/15/19) COVID-19 Screening Contact w/high risk pt: No Recent Travel to affected area: No Experienced COVID-19 symptoms?: No Patient History Past Medical History: see triage record Past Surgical History: none Pertinent Family History: none Now: No Immunizations: UTD Reviewed Nursing Documentation: PMH: Agreed; PSxH: Agreed Nursing Documentation-PMH Past Medical History: No History, Except For Hx COPD: No - PNA Review of Systems All Other Systems: negative except mentioned in HPI Physical Exam Vital Signs Date Time Temp Pulse Resp B/P (MAP) Pulse Ox O2 Delivery O2 Flow Rate FiO2 09/24/19 14:04 97.9 77 19 138/85 (102) 98 Room Air Sp02 EP Interpretation: reviewed, normal General Appearance: no apparent distress, alert, GCS 15, non-toxic Head: normocephalic, atraumatic Eyes: bilateral eye normal inspection, bilateral eye PERRL ENT: hearing grossly normal, normal voice, other - Tooth No. 1 is filled with what appears to be temporary filling, central root canal has been performed. the surrounding gum line is erythematous. There is no palpable fluctuance of the gum line. Neck: full range of motion Respiratory: chest non-tender, lungs clear, normal breath sounds, speaking full sentences Cardiovascular #1: regular rate, rhythm, no edema Gastrointestinal: normal bowel sounds, non tender, soft Rectal: deferred Genitourinary: normal inspection Musculoskeletal: back normal, normal range of motion, gait/station normal, non- tender Neurologic: alert, motor strength/tone normal, oriented x3, sensory intact, responsive, speech normal Psychiatric: judgement/insight normal Lymphatic: no adenopathy Medical Decision Making PA Attestation Dr. Mcknight is my supervising Physician whom patient management has been discussed with. Diagnostic Impression: Primary Impression: Acute pericoronitis Additional Impression: Dental infection ER Course 55-year-old female presents to the emergency department complaining of 8 out of 10 severity pain localized to the right posterior upper molar progressive x3 days. Patient reports she had previous root canal done in that tooth and she is now experiencing symptoms. Patient denies fevers or chills. She denies swollen tender lymph nodes. She denies recent trauma to the tooth. Patient states she has been taking Tylenol with no relief of her symptoms. Patient states that she has an allergy to penicillins and her dentist typically gives her Keflex as that medication works the best when she has dental infections. She denies any other aggravating or relieving factors at this time Ddx considered but are not limited to cellulitis, dental abscess, orbital cellulitis, d/l tooth, dental pain. trigeminal neuralgia Vital signs: are WNL, pt. is afebrile H&PE are most consistent with Pericoronitis/ dental infection. ORDERS: none required at this time, the diagnosis is clinical ED INTERVENTIONS: None required at this time. DISCHARGE: At this time pt. is stable for d/c to home. Will provide printed patient care instructions, and any necessary prescriptions. Care plan and follow up instructions have been discussed with the patient prior to discharge. Last Vital Signs Date Time Temp Pulse Resp B/P (MAP) Pulse Ox O2 Delivery O2 Flow Rate FiO2 09/24/19 14:11 98.0 89 18 132/86 98 Room Air Disposition: HOME, SELF-CARE Condition: Stable Scripts Benzocaine (ANBESOL) 9 Gm Gel..gram. 1 APPLIC MM TID, #9 GM Prov: Delmy Jin 09/24/19 Acetaminophen With Codeine (T#3) (TYLENOL #3 TAB*) Y Tab 1 TAB ORAL Q6H PRN for For Pain, #9 TAB Prov: Delmy Jin 09/24/19 Chlorhexidine Gluconate (Peridex) 15 Ml Mouthwash 15 ML MM BID, #473 ML Prov: Delmy Jin 09/24/19 Cephalexin* (KEFLEX*) 500 Mg Capsule 500 MG ORAL EVERY 12 HOURS for 7 Days, #14 CAP 0 Refills Prov: Delmy Jin 09/24/19 Referrals: Richard Mejia MD (PCP) Patient Instructions: Dental Pain Additional Instructions: Take medications as directed. Follow up with a Dentist in 3-5 days, even if your symptoms have resolved. * * Return sooner to ED if new symptoms occur, or current symptoms become worse. Do not drink alcohol, drive, or operate heavy machinery while taking Tylenol # 3 as this may cause drowsiness. - Please note that this Emergency Department Report was dictated using [employer] Technologyset off press operator technology software, occasionally this can lead to erroneous entry secondary to interpretation by the dictation equipment. Delmy Jin Sep 24, 2019 14:34
[2019-09-24] MEDS ORDERED: ANBESOL9 GM MM (14:40)
[2019-09-24] MEDS ORDERED: CEPHALEXIN500 MG ORAL (14:40)
[2019-09-24] MEDS ORDERED: ACETAMINOPHEN-1 EAC1 ORAL (14:40)
[2019-09-24] MEDS ORDERED: PERIDEX15 ML MM (14:40)
[2019-09-24 14:43] VITALS: BP 128/80
== END 2019-09-24 14:44 | disposition home or self-care (01) ==
LOC: EMR 14:27
DX: K05.20 Aggressive periodontitis, unspecified (principal); Z88.0 Allergy status to penicillin
CPT/HCPCS: 99282

== ENCOUNTER 2019-11-20 14:30 | Emergency (ER) | payer OTHER ==
[~2019-11-20] VITALS: Ht 175.3 cm; Wt 65.8 kg
[~2019-11-20 14:30] MED LIST changes: +ACETAMINOPHEN-1 EAC1 ORAL; +ANBESOL9 GM MM; +PERIDEX15 ML MM
--- NOTE | 2019-11-20 15:03 | Emergency Room Report ---
History of Present Illness General Chief Complaint: Pelvic Pain Source: Patient Present Illness HPI Patient is a 55-year-old female denies any significant past medical history who presents to the ER complaining of pelvic discomfort for 1 week. Patient complains of white vaginal discharge. She states that her boyfriend was diagnosed with trichomonas and has been on Flagyl. Patient denies any fever or chills. She denies any nausea or vomiting. She denies any diarrhea or constipation. She denies any hematuria. I offered the patient laboratory studies, pelvic ultrasound and CT abdomen pelvis and she has declined all of it. She states that she just wants her urine checked. Allergies: Coded Allergies: PENICILLINS (Verified Allergy, Unknown, 08/15/19) COVID-19 Screening Contact w/high risk pt: No Recent Travel to affected area: No Experienced COVID-19 symptoms?: No COVID-19 Testing performed REGISTERED DIETICIAN: No Patient History Past Medical History: none Past Surgical History: none Social History: Denies: smoking, alcohol use, drug use Last Menstrual Period: 11/18/19 Nursing Documentation-[facility] Past Medical History: No History, Except For Hx COPD: No - PNA Review of Systems All Other Systems: negative except mentioned in HPI Physical Exam Vital Signs Date Time Temp Pulse Resp B/P (MAP) Pulse Ox O2 Delivery O2 Flow Rate FiO2 11/20/19 14:44 98.1 73 16 121/81 (94) 100 Room Air Sp02 EP Interpretation: reviewed, normal General Appearance: no apparent distress, alert, GCS 15, non-toxic Head: normocephalic, atraumatic Eyes: bilateral eye normal inspection, bilateral eye PERRL ENT: hearing grossly normal, normal pharynx, no angioedema, normal voice Neck: full range of motion, supple/symm/no masses Respiratory: chest non-tender, lungs clear, normal breath sounds, speaking full sentences Cardiovascular #1: regular rate, rhythm, no edema Cardiovascular #2: 2+ carotid (R), 2+ carotid (L), 2+ radial (R), 2+ radial (L) , 2+ dorsalis pedis (R), 2+ dorsalis pedis (L) Gastrointestinal: other - Supra pubic mild tenderness to palpation with no guarding or rebound Rectal: deferred Genitourinary: no CVA tenderness Musculoskeletal: back normal, normal range of motion, gait/station normal, non- tender Neurologic: alert, motor strength/tone normal, oriented x3, sensory intact, responsive, speech normal Psychiatric: no suicidal/homicidal ideation Skin: no rash Lymphatic: no adenopathy Medical Decision Making Diagnostic Impression: Primary Impression: Pelvic pain ER Course Patient's UA demonstrates no evidence of infection. It is been sent for culture , GC and chlamydia. I discussed this with the patient. She still declining any further work-up in the emergency room for her pelvic discomfort at this time. She states that she just wants Flagyl to be treated for trichomonas since her partner has trichomonas and has been on Flagyl. I told the patient that she can come back to the emergency room at any time if she feels that she would like further work-up for her pelvic discomfort. She states that she is getting go see her tax processor. I told the patient to feel free to come back to the emergency room if she would like blood work, ultrasound or CT abdomen pelvis. She is still declining at this time. Lab Results Impression Laboratory Tests Test 11/20/19 15:00 Urine Color Yellow Urine Appearance Clear Urine pH 5 (4.5-8.0) Urine Specific [place] 1.020 (1.005-1.035) Urine Protein Negative (NEGATIVE) Urine Glucose (UA) Negative (NEGATIVE) Urine Ketones Negative (NEGATIVE) Urine Blood Negative (NEGATIVE) Urine Nitrite Negative (NEGATIVE) Urine Bilirubin Negative (NEGATIVE) Urine Urobilinogen Normal MG/DL (0.0-1.0) Urine Leukocyte Esterase Negative (NEGATIVE) Chlamydia trachomatis RNA Pending Neisseria gonorrhoeae RNA Pending Last Vital Signs Date Time Temp Pulse Resp B/P (MAP) Pulse Ox O2 Delivery O2 Flow Rate FiO2 11/20/19 14:44 98.1 73 16 121/81 (94) 100 Room Air Disposition: HOME, SELF-CARE Condition: Unknown Scripts Metronidazole* (FLAGYL*) 500 Mg Tablet 500 MG ORAL BID for 7 Days, #14 TAB Prov: Delma Harrell M.D. 11/20/19 Additional Instructions: The patient was provided with discharge instructions, notified to follow-up with a primary care doctor and or specialist in the next 24-48 hours, and to return to the ED if they have worsening of their symptoms. Please note that this report is being documented using Lyst technology. This can lead to erroneous entry secondary to incorrect interpretation by the dictating instrument. Delma Harrell M.D. November 20, 2019 15:03
[2019-11-20 15:23] LABS: BILIRUBIN, URINE NEGATIVE (NEGATIVE); GLUCOSE, URINE (UA) NEGATIVE (NEGATIVE); KETONES,URINE NEGATIVE (NEGATIVE); LEUKOCYTE ESTERASE ,URINE NEGATIVE (NEGATIVE); NITRITE,URINE NEGATIVE (NEGATIVE); PH,URINE 5 (4.5-8.0); PROTEIN,URINE NEGATIVE (NEGATIVE); UROBILINOGEN,URINE NORMAL MG/DL (0.0-1.0)
[2019-11-20 15:24] LABS: APPEARANCE,URINE CLEAR; COLOR,URINE YELLOW
[2019-11-20 15:26] VITALS: BP 121/81
[2019-11-20] MEDS ORDERED: METRONIDAZOLE500 MG ORAL (15:56)
[2019-11-20 16:00] VITALS: BP 121/81
--- NOTE | 2019-11-20 16:00 | NUR ---
ED Nurse Note: Pt cleared by health care Provider for discharge. DC instructions/prescription was given and explained to pt and verbalized understanding of teachings. All medical deviecs such as ID band removed. Pt is AAO x4, ambulatory and left with all personal belongings.
== END 2019-11-20 16:16 | disposition home or self-care (01) ==
LOC: EMR 15:29
DX: R10.2 Pelvic and perineal pain (principal)
CPT/HCPCS: 81003; 87086; 87181; 87491; 87590; Z7502; 99283

== ENCOUNTER 2019-12-14 17:25 | Emergency (ER) | payer MEDICAID, OTHER ==
[~2019-12-14] VITALS: Ht 175.3 cm; Wt 74.8 kg
--- NOTE | 2019-12-14 17:34 | NUR ---
ED Nurse Note:pt. came with right upper toothache for 3 days and wants to get antibiotics
--- NOTE | 2019-12-14 17:42 | Emergency Room Report ---
History of Present Illness General Chief Complaint: Toothache Present Illness HPI 55-year-old female with no segment past medical history here complaining of right upper posterior tooth ache x2 days. Reports that she contacted her dentist and was told to come to the emergency room for antibiotics. Rates the pain 10 out of 10 without radiation. Appears to be stable with stable vital signs. Denies fever and chills, chest pain, shortness of breath, headache and dizziness. No pus drainage noted. No cervical lymphadenopathy noted. Denies . Allergies: Coded Allergies: PENICILLINS (Verified Allergy, Unknown, 08/15/19) COVID-19 Screening Contact w/high risk pt: No Recent Travel to affected area: No Experienced COVID-19 symptoms?: No COVID-19 Testing performed GUNNER'S MATE: No Patient History Past Medical History: see triage record Past Surgical History: none Pertinent Family History: none Now: No Immunizations: UTD Reviewed Nursing Documentation: PMH: Agreed; PSxH: Agreed Nursing Documentation-PMH Past Medical History: No History, Except For Hx COPD: No - PNA Review of Systems All Other Systems: negative except mentioned in HPI Physical Exam Vital Signs Date Time Temp Pulse Resp B/P (MAP) Pulse Ox O2 Delivery O2 Flow Rate FiO2 12/14/19 17:30 98.6 85 17 121/74 (90) 99 Room Air Sp02 EP Interpretation: reviewed, normal General Appearance: no apparent distress, alert, GCS 15, non-toxic Head: normocephalic, atraumatic Eyes: bilateral eye normal inspection, bilateral eye PERRL ENT: hearing grossly normal, normal pharynx, no angioedema, normal voice Neck: full range of motion, supple, supple/symm/no masses Respiratory: chest non-tender, lungs clear, normal breath sounds, no wheezing, speaking full sentences Cardiovascular #1: regular rate, rhythm, no edema, no murmur Gastrointestinal: normal bowel sounds, non tender, soft, non-distended, no guarding, no rebound Rectal: deferred Genitourinary: no CVA tenderness Musculoskeletal: back normal Neurologic: alert, motor strength/tone normal, oriented x3, sensory intact, responsive, speech normal Psychiatric: judgement/insight normal, memory normal, mood/affect normal, no suicidal/homicidal ideation Skin: no rash Lymphatic: no adenopathy Medical Decision Making PA Attestation All diagnoses and treatment plans were reviewed and discussed with my supervising physician Dr. Lindsay Diagnostic Impression: Primary Impression: Dental infection ER Course 55-year-old female with no segment past medical history here complaining of right upper posterior tooth ache x2 days. Reports that she contacted her dentist and was told to come to the emergency room for antibiotics. Rates the pain 10 out of 10 without radiation. Appears to be stable with stable vital signs. Denies fever and chills, chest pain, shortness of breath, headache and dizziness. No pus drainage noted. No cervical lymphadenopathy noted. Denies . Ddx considered but are not limited to : Cellulitis, dental abscess, dental pain Vital signs: are WNL, pt. is afebrile H&PE are most consistent with: Possible dental infection ORDERS: Amoxicillin denies any department. ED INTERVENTIONS: None required at this time. DISCHARGE: At this time pt. is stable for d/c to home. Will provide printed patient care instructions, and any necessary prescriptions. Care plan and follow up instructions have been discussed with the patient prior to discharge. Drug-seeking behavior noted, cures was extensive, patient strong pain medication makes her constipated and Tylenol does not seem and since we are discharging her stronger pain medication. When I asked her that we could discharge her prednisone here as well as Tylenol 3 and write her prescription for prednisone patient requested to speak to physician instead of daily states she does not want to be seen by physician expanded duty dental assistant. I asked my supervising physician to see the patient. He also examined the patient and wrote for narcotics. Last Vital Signs Date Time Temp Pulse Resp B/P (MAP) Pulse Ox O2 Delivery O2 Flow Rate FiO2 12/14/19 17:30 98.6 85 17 121/74 (90) 99 Room Air Disposition: HOME, SELF-CARE Condition: Stable Scripts Acetaminophen With Codeine (T#3) (TYLENOL #3 TAB*) Y Tab 1 TAB ORAL Q8H PRN for For Pain, #10 TAB Prov: Popeye Lindsay MD 12/14/19 Ibuprofen* (MOTRIN*) 600 Mg Tablet 600 MG ORAL THREE TIMES A DAY, #30 TAB Prov: Ubaldo Holt 12/14/19 Amoxicillin* (AMOXIL*) 500 Mg Capsule 500 MG ORAL EVERY 8 HOURS for 10 Days, #30 CAP Prov: Ubaldo Hlot 12/14/19 Patient Instructions: Dental Pain Additional Instructions: Take medication as directed, follow with your dentist, avoid eating with the affected side, if worsening symptoms return to the emergency room Ubaldo Holt Dec 14, 2019 17:42
[2019-12-14] MEDS ORDERED: AMOXICILLIN500 MG ORAL (17:43)
[2019-12-14] MEDS ORDERED: IBUPROFEN600 M1 ORAL (17:43)
[2019-12-14 17:50] VITALS: BP 121/74
--- NOTE | 2019-12-14 17:50 | NUR ---
ED Nurse Note:attempted to dc pt home. she becomes upset re prescriptions and f/u plan. requesting to speak to md for further discussion. declines re-eval by amelia sheikh. dr lerma aware of pt.
[2019-12-14] MEDS ORDERED: ACETAMINOPHEN-1 EAC1 ORAL (18:20)
--- NOTE | 2019-12-14 18:29 | NUR ---
ED Nurse Note: Pt cleared by health care Provider for discharge. DC instructions/prescription was given and explained to pt and verbalized understanding of teachings. All medical devices such as ID band removed. Pt is AAO x4, ambulatory and left with all personal belongings. pt educated by rn and md that antibiotics ordered for her are correct treatment.
[2019-12-14 18:30] VITALS: BP 121/74
== END 2019-12-14 18:30 | disposition home or self-care (01) ==
LOC: EMR 18:30
DX: K04.7 Periapical abscess without sinus (principal); Z88.0 Allergy status to penicillin
CPT/HCPCS: 99282